=== PATIENT | female | born 1960 | race Caucasian/White ===

== ENCOUNTER 2019-07-07 05:50 | Observation (INO) | payer BC ==
--- OUTSIDE RECORDS SUMMARY | 2019-07-07 06:01 | XMS REPORT ---
Author Author [facility] Address Unknown Phone Unavailable Care Team Providers Care Account Executive Software Sales Name Role Phone Unavailable Unavailable Problems This patient has no known problems. Allergies, Adverse Reactions, Alerts This patient has no known allergies or adverse reactions. Medications This patient has no known medications.
[2019-07-07] MEDS ORDERED: GABAPENTIN 300 MG CAP ONE (06:43)
[2019-07-07] MEDS ORDERED: DEXAMETHASONE SOD PHOS 10 MG/1 ML VIAL ONE (06:43)
[2019-07-07] MEDS ORDERED: CELECOXIB 200 MG CAP ONE (06:43)
[2019-07-07] MEDS ORDERED: CEFAZOLIN SOD 1 GM/NS 50ML 100 ML IV ONE (06:44)
[2019-07-07] MEDS ORDERED: BACITRACIN 50,000 UNIT VIAL ONE (07:04)
[2019-07-07] MEDS ORDERED: TRANEXAMIC ACID 1,000 MG/10 ML ML ONE (07:04)
[2019-07-07] MEDS ORDERED: VANCOMYCIN HCL 1,000 MG ONE (07:04)
[2019-07-07] MEDS ORDERED: SODIUM CHLORIDE 0.9% 500ML 500 ML ONE (07:04)
[2019-07-07] MEDS ORDERED: ROPIVACAINE 246.25 MG, EPINEPHRINE HCL 1:1000 1ML 0.5 MG, CLONIDINE HCL 0.08 MG, KETORO... INJ ONE ×5 (08:00)
[2019-07-07] MEDS ORDERED: BUPIVACAINE 7.5MG/ML /DEXTROSE 82.5MG/ML 2 ML AMP INJ ONE (08:31)
[2019-07-07] MEDS ORDERED: DOCUSATE SODIUM 100 MG CAP PO PRN (10:00)
[2019-07-07] MEDS ORDERED: HYDROCODONE/APAP 7.5MG-325MG 1 EA TAB PO PRN (10:00)
[2019-07-07] MEDS ORDERED: PROMETHAZINE HCL (IM) 25 MG/ML VIAL IM PRN (10:00)
[2019-07-07] MEDS ORDERED: DIPHENHYDRAMINE HCL INJ 50 MG/ML VIAL IM/IV PRN (10:00)
[2019-07-07] MEDS ORDERED: ACETAMINOPHEN 650 MG SUPP PR PRN (10:00)
[2019-07-07] MEDS ORDERED: HYDROCODONE/APAP 5MG-325MG TAB PO PRN ×2 (10:00→23:00)
--- NOTE | 2019-07-07 10:39 | Diagnostic Imaging Report ---
EXAM: PELVIS AP 1-2 VIEWS DATE: 07/07/2019 9:59 AM INDICATION: Postop COMPARISON: None FINDINGS: There are postsurgical changes from total right hip arthroplasty. Hardware appears intact and in anatomic alignment. There is no evidence for acute fracture or dislocation. Small amount of subcutaneous emphysema noted within the soft tissues adjacent to the right hip, likely postoperative. There are advanced degenerative changes of the left hip. IMPRESSION: Expected post surgical changes from recent right hip arthroplasty. Signed by: Dr. Andrew Hicks MD on 07/07/2019 10:36 AM
--- NOTE | 2019-07-07 11:45 | NUR ---
received to rm aaox3 no distress noted, updated on poc vocied understanding, denies pain at this time, dsg to right hip c/d/i, pt had abrasion/ redness to left gluteal upon admission md aware. ivf infusing to r hand 20g no ss of infiltration noted, no other co vocied call light in [facility] will continue to monitoer
[2019-07-07 11:51] VITALS: BP 115/68
[2019-07-07] MEDS: KETOROLAC TROMETHAMINE 30 MG/ML VIAL IV PRN ×2 (13:01→18:31)
--- NOTE | 2019-07-07 13:02 | Operative Report ---
DATE OF PROCEDURE: 07/07/2019 SURGEON: Leroy Oliver MD CYBER WORKFORCE DEVELOPER AND MANAGER: Oscar Guaman, certified PA. PREOPERATIVE DIAGNOSIS: Osteoarthritis, right hip. POSTOPERATIVE DIAGNOSIS: Osteoarthritis, right hip. PROCEDURE: Right total hip arthroplasty. INDICATIONS: The patient is a 59-year-old lady, who has osteoarthritis of her right hip. She is wanting to pursue a right total hip replacement. She has been treated with conservative management. She has seen a couple of different physicians, who have recommended right total hip replacement. The risks and benefits of the procedure were discussed in detail. The recovery was explained. The patient states she understands and wishes to proceed. DESCRIPTION OF PROCEDURE: The patient was brought to the operating room and given a spinal anesthetic. She received prophylactic antibiotics and tranexamic acid in the holding area. She was positioned in the left lateral decubitus position. Her right hip was prepped and draped in a sterile manner. A preoperative time-out was performed. A posterior approach was made to the right hip. Though, the patient's BMI was only 32, the majority of her weight was distributed to her hip. There was abundant subcutaneous adipose tissue. Hemostasis was obtained with electrocautery. A self-retaining Charnley retractor with deep blades was placed into the wound. The posterior capsule was carefully exposed. Continued challenges were encountered due to the deep wound. The short external rotators were released. Further hemostasis was obtained with electrocautery. The posterior capsule was released and the hip was dislocated. Wear of the articular cartilage was noted. An oscillating saw was used to resect the femoral neck. It was noted that the bone was quite soft. Acetabular retractors were carefully placed. The challenges were encountered to expose the acetabulum with the deep wound. The labral remnants were removed with a long-handled knife. The true floor of the acetabulum was established and the socket was sequentially reamed to 53 mm. A Cortez Biomet 54 mm outer diameter OsseoTi socket was then impacted into place. Good fixation was obtained. Fixation was augmented with a single 20 mm screw placed into the ilium. The hip was thoroughly irrigated on several occasions with a shower tip pulsatile lavage or a spray mixture of diluted polymyxin and vancomycin spray. A highly cross-linked polyethylene liner with a 36 mm inner diameter was then seated into place. Care was taken to make sure that there was no evidence of soft tissue interposition. The socket was packed with moistly soaked lap sponge. The proximal femur was carefully exposed. The Taperloc broaches were impacted. Once again, we proceeded with caution due to the soft bone. We impacted up to a size 14 stem. A trial reduction revealed that the hip appeared to be slightly long. We went back to a 13 stem to shorten. Repeat trial reduction showed good range of motion and stability, and tenriism of limb length. The trial implants were removed. The hip was further irrigated with a shower tip pulsatile lavage. A size 13 taper lock broach was impacted into place. Again, care was taken to the soft bone, not to split the femur. A standard 36 mm ceramic head was then seated onto a clean and dry stem. A final reduction was performed. The wound was further irrigated and then the posterior capsule was repaired with #2 Ethibond. A 500 mg of vancomycin powder were sprinkled into the deep wound. The fascia was closed with interrupted #2 Ethibond. Tissue quality was poor. On a careful occasions, the stitches cut out of the fascia. The skin was closed with subcuticular Vicryl and raquel. A sterile Aquacel bandage was applied. The patient was returned to the supine position and transported to the recovery room in stable condition. Estimated blood loss was 100 mL. At the end of the procedure, all needle and sponge counts were correct. Leroy Oliver MD DR/JULIA /[id number]
[2019-07-07] MEDS ORDERED: ONDANSETRON HCL INJ 2MG/ML 2ML 2 MG/ML VIAL ONE (13:08)
[2019-07-07] MEDS ORDERED: LIDOCAINE HCL 2% LOCAL INJ 5 ML SDV VIAL INJ ONE (13:08)
[2019-07-07] MEDS ORDERED: PROPOFOL IV EMULSION 10 MG/ML 20 ML VIAL ONE (13:08)
[2019-07-07] MEDS ORDERED: DEXAMETHASONE SOD PHOS INJ 4 MG/ML VIAL ONE (13:08)
[2019-07-07] MEDS ORDERED: FENTANYL CITRATE/PF 100MCG/2 ML INJ ONE (13:51)
[2019-07-07] MEDS ORDERED: MIDAZOLAM HCL 2 MG/2 ML VIAL ONE (13:51)
[2019-07-07] MEDS: CEFAZOLIN SOD 1 GM/NS 50ML 50 ML IV SCH ×2 (14:30→21:36)
[2019-07-07] MEDS: SODIUM CHLORIDE 0.9% 1000ML 1,000 ML IV SCH ×2 (14:42→23:00)
[2019-07-07 16:21] VITALS: BP 109/80
[2019-07-07] MEDS: CELECOXIB 200 MG CAP PO SCH (17:00)
[2019-07-07] MEDS: ASPIRIN 325 MG TAB PO SCH (17:37)
--- NOTE | 2019-07-07 18:52 | NUR ---
WALKING ROUNDS PERFORMED, RECEIVED PT LAYING SEMI FOWLERS IN BED, AAOX3, RR EVEN AND NON-LABORED, ON ROOM AIR. NO S/SX OF DISTRESS NOTED. DRESSING TO (R) HIP NOTED TO BE CDI. LEFT PT LAYING SEMI FOWLERS IN BED, BED IN LOW LOCKED POSITION, SIDE RAILS UPX2, CALL LIGHT AND PHONE WITHIN REACH.
[2019-07-07 20:13] VITALS: BP 122/77
[2019-07-07] MEDS ORDERED: ACETAMINOPHEN 1000 MG/100 ML 100 ML IV ONE (20:38)
[2019-07-07 20:57] VITALS: BP 122/76
[2019-07-07] MEDS ORDERED: ZOLPIDEM TARTRATE 5 MG TAB PO PRN (21:00)
--- NOTE | 2019-07-07 21:54 | NUR ---
APPLIED ICE TO (R) HIP INCISION.
[2019-07-07] MEDS ORDERED: ACETAMINOPHEN 1000 MG/100 ML IV PRN (22:00)
--- NOTE | 2019-07-07 22:38 | NUR ---
PAGE PLACED FOR MD MACEDO CONCERNING PT'S REPORTS OF 9/10 PAIN UNRESOLVED BY TYLENOL AND TORADOL. WAITING FOR CALLBACK.
--- NOTE | 2019-07-07 22:48 | NUR ---
SPOKE WITH MD MACEDO, WAS INSTRUCTED TO CALL MD MACIEL FOR PAIN MEDICATION. SPOKE WITH MD MACIEL CONCERNING PAIN MANAGEMENT. NEW ORDERS RECEIVED FOR [facility] TO HELP WITH PAIN SINCE PATIENT JUST HAS NAUSEA AND VOMITING WITH HYDROCODONE. TO ADMINISTER ANTIEMETIC WITH [facility].
[2019-07-07] MEDS: HYDROCODONE/APAP 7.5MG-325MG 1 EA TAB PO PRN (23:09)
[2019-07-08] VITALS: BP 113/57
[2019-07-08] MEDS: ONDANSETRON HCL INJ 2MG/ML 2ML 2 MG/ML VIAL IV PRN ×2 (03:10→08:45)
[2019-07-08] MEDS: HYDROCODONE/APAP 7.5MG-325MG 1 EA TAB PO PRN ×3 (03:10→13:45)
[2019-07-08 04:00] VITALS: BP 89/64
[2019-07-08] MEDS: CEFAZOLIN SOD 1 GM/NS 50ML 50 ML IV SCH (05:59)
[2019-07-08 06:17] LABS: HEMATOCRIT 35.6 % (34.2-44.1); HEMOGLOBIN 11.6 g/dL (12.0-16.0)
[2019-07-08 07:35] VITALS: BP 115/71
--- NOTE | 2019-07-08 08:17 | NUR ---
DR MATHUR OFFICE PREARRANGED FOLLOWING DISCHARGE PLAN OF:HOME WITH HOME HEALTH WITH HOME CARE PROVIDERS CONFIRMED WITH [facility] [phone] DME 3 IN ONE COMMODE. AND ROLLING WALKER WITH WHEELS. PROVIDED BY [employer] [phone] TESS SIGNED AND ON CHART COPY LEFT WITH PATIENT GAVE CARD FOR QUESTIONS AND OR CONCERNS.
[2019-07-08 08:27] VITALS: BP 115/71
[2019-07-08] MEDS: ASPIRIN 325 MG TAB PO SCH (08:38)
[2019-07-08] MEDS: CELECOXIB 200 MG CAP PO SCH (08:38)
[2019-07-08 12:07] VITALS: BP 125/84
== END 2019-07-08 14:30 | disposition home or self-care (01) ==
LOC: OR 05:50 → PACU V 10:01 → MED/SURG 11:35
PROVIDERS: ADMIT Specialist; ATTEND Specialist
DX: M16.11 Unilateral primary osteoarthritis, right hip (principal); Z88.5 Allergy status to narcotic agent
CPT/HCPCS: 27130; 36415; 72170; 85014; 85018; 86850; 86900; 97116; 97139; 97161; 97530 ×2; G0378 ×2; J0131; J0171; J0690 ×2; J1100 ×2; J1885; J2001; J2250; J2405 ×2; J2550; J2704; J2795; J3010; J3370; J7030; J7040